=== PATIENT | male | born 1965 | race Caucasian/White ===

== ENCOUNTER 2024-08-15 11:59 | Inpatient (IN) | payer OTHER, SELFPAY ==
[2024-08-15] VITALS (11 sets, daily range): BP systolic 113–137; BP diastolic 66–90; PULSE 56–76; RESP 14–20; TEMP 36.5–37.1; O2SAT 95–99; BMI 31.8; BMI 33.2
--- NOTE | 2024-08-15 12:05 | EKG12_ITS ---
Test Reason : Blood Pressure : */* mmHG Vent. Rate : 56 BPM Atrial Rate : 56 BPM P-R Int : 160 ms QRS Dur : 76 ms QT Int : 428 ms P-R-T Axes : 50 20 14 degrees QTcB Int : 413 ms Sinus bradycardia Otherwise normal ECG When compared with ECG of 15-Aug-2024 12:23, MANUAL COMPARISON REQUIRED DATA IS UNCONFIRMED Confirmed by Gopi Grayson ([id number]), commissioning editor POLLY RUBY ([id number]) on 08/16/2024 9:24:45 AM Referred By: CARMINE Confirmed By: Gopi Grayson
--- NOTE | 2024-08-15 12:05 | RAD_ITS ---
PROCEDURE: CHEST 1 VIEW REASON FOR EXAM: Left leg and arm numbness and tingling. Dizziness headache. TECHNIQUE: Frontal view of the chest. COMPARISON: None. FINDINGS: The cardiac and mediastinal contours are normal. No acute consolidation, pleural effusion or pneumothorax. The visualized osseous structures demonstrate no acute abnormality. RAD/Chest 1 View IMPRESSION: No acute consolidation, pleural effusion or pneumothorax. Reading Location: [id number]
--- NOTE | 2024-08-15 12:06 | CT_ITS ---
PROCEDURE: STROKE CTA HEAD AND NECK W/CON REASON FOR EXAM: Headache. Loss of balance and left-sided weakness. TECHNIQUE: CTA imaging of the head and neck from the aortic arch to the skull vertex with intravenous contrast. 3D reconstructions. CONTRAST: 100 cc of Isovue 370. COMPARISON: Comparison is made with prior CT unenhanced of the head done earlier in the day. FINDINGS: Aortic Arch: Normal size and branching pattern. No significant atherosclerotic plaque. Brachiocephalic and Subclavians: Unremarkable RIGHT Carotid: Right CCA: Unremarkable. Right ICA: Unremarkable. Right ECA: Unremarkable. LEFT Carotid: Left CCA: Unremarkable. Left ICA: Unremarkable. Left ECA: Unremarkable. Vertebrals: Codominant. Arise from the subclavians. Both vertebrals form the basilar. RIGHT Vertebral: Unremarkable. LEFT Vertebral: Small left vertebral artery. No intracranial aneurysms or large vascular malformations are identified. Anterior cerebral arteries: Unremarkable. Middle cerebral arteries: Unremarkable. Basilar artery: Unremarkable. Posterior cerebral arteries: Unremarkable. Other major branches of the posterior circulation: Unremarkable. Major venous structures: Unremarkable. Other findings: No lymphadenopathy. Lung apices are clear. Bones are unremarkable. CT/STROKE CTA Head AND Neck W/Con IMPRESSION: RIGHT CAROTID: Unremarkable. LEFT CAROTID: Unremarkable. VERTEBRALS: Unremarkable. INTRACRANIAL: Unremarkable. One or more dose reduction techniques were used (e.g., Automated exposure contr ol, adjustment of the mA and/or kV according to patient size, use of iterative reconstruction technique). Reading Location: [id number]
--- NOTE | 2024-08-15 12:07 | CT_ITS ---
EXAM: STROKE BRAIN/HEAD WITHOUT CONT CLINICAL HISTORY: Headaches. Weakness on the left side with loss of balance. COMPARISON: None. TECHNIQUE: Multiple axial tomographic images were obtained without intravenous contrast administration. Sagittal and coronal reconstruction was obtained as well. FINDINGS: No significant atrophy is seen. Normal castro-white matter differentiation. No focal abnormality is seen. Mild degree of ethmoid sinusitis. CT/STROKE Brain/Head without Cont IMPRESSION: No acute abnormality is seen. The results were communicated to Dr. Duran the referring physician. Reading Location: [id number]
--- NOTE | 2024-08-15 12:28 | ED.RN ---
pt. back to room. called [facility]. @[id number]
[2024-08-15 12:30] LABS: Absolute Lymphocyte Count 1.73 X10^3/uL (0.83-4.51); Absolute Neutrophil Count 4.8 X10^3/uL (2.0-7.7); Basophil# 0.02 X10^3/uL; Basophil% 0.3 % (0-1); Eosinophil# 0.07 X10^3/uL; Hematocrit 40.7 % (40-54); Hemoglobin 13.8 g/dL (13.0-16.5); Lymphocyte # 1.73 X10^3/ul (0.83-4.51); Lymphocyte % 24.3 % (19-41); Mean Corp Hgb Conc 33.9 g/dL (32-36); Mean Corpuscular Hgb 29.7 pg (27.0-32.0); Mean Corpuscular Volume 87.5 fL (80-94); Mean Platelet Vol. 8.6 fl (6.2-12.0); Monocyte# 0.51 X10^3/uL; Monocyte% 7.2 % (0-10); NRBC Flagged by Analyzer 0 % (0-5); Neutrophil # 4.76 X10^3/uL (2.7-7.7); Neutrophil % 66.9 % (47-70); Platelet Count 215 K/mm3 (150-450); RBC Distribution Width CV 12.2 % (11.6-14.6); RBC Distribution Width SD 39.3 fl (35.1-43.9); Red Blood Count 4.65 M/mm3 (4.6-6.2); White Blood Count 7.1 K/mm3 (4.4-11.0)
[2024-08-15 12:36] LABS: Partial Thromboplast Time 26.1 Seconds (24.1-36.2)
[2024-08-15 12:40] LABS: Prothrombin Time (Protime)PT. 13.4 SECONDS (11.7-14.9)
--- NOTE | 2024-08-15 12:54 | EX.ED.DYSGE1 ---
HPI History of Present Illness Chief Complaint: Stroke Alert Narrative Narrative: Patient is a 58-year-old male with a past medical history of migraines, asthma who presents to the emergency department chief complaint of left arm and leg weakness as well as dizziness and headache. According the patient his last known well was around 10 AM this morning. 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 He states that he has been under extreme amount of stress recently as his company is questionably going to go bankrupt. Patient states that when he woke up this morning he felt well overall patient denies any blood thinner medications. [facility] Medical History Migraine Asthma Allergy/AdvReac Type Severity Reaction Status Date / Time No Known Allergies Allergy Verified 08/15/24 12:05 Social History Smoking Status: Never smoker ROS ROS ED ROS Narrative Constitutional: Complains of headache, dizziness as noted above denies any fevers or chills Eyes: Denies change in vision double vision blurry vision Cardiovascular: Denies chest pain or palpitations Respiratory: Denies coughing wheezing shortness of breath Abdomen: Denies abdominal pain nausea vomit diarrhea : Denies any urinary symptoms Neurological: Denies numbness, weakness, tingling Musculoskeletal: Denies back pain Skin: Denies rashes or lesions EXAM Physical Exam Narrative Exam Narrative: General: Patient lying in bed resting comfortably did not appear to be in acute distress Head: Atraumatic, normocephalic Eyes: PERRL bilaterally, EOMI bilaterally, no conjunctival injection noted Neck: Soft, supple, trachea midline Cardiovascular: Regular in rhythm no murmurs gallops rubs noted Respiratory: Clear to auscultation bilaterally Abdomen: Soft, nondistended, nontender to palpation, bowel sounds present x 4 Extremities: Radial pulses +2/4 in the bilateral extremities, +4/5 strength noted in the left upper extremity and the left lower extremity when compared to the right side Neurological: Patient following commands that he was at [facility] year is 2024. GCS 15 NIH 0 Skin: Warm, dry, intact no rashes or lesions noted Const Vital Signs: 08/15/24 12:01 08/15/24 12:17 08/15/24 12:17 Temperature 98.1 F 98.7 F Temperature Source Temporal Oral Pulse Rate 76 67 Respiratory Rate 16 14 Blood Pressure 137/90 H 129/86 H Blood Pressure Mean 105 100 Pulse Ox 98 99 Oxygen Delivery Method Room Air Room Air Room Air 08/15/24 12:35 08/15/24 13:05 Temperature 98.7 F Temperature Source Oral Pulse Rate 64 65 Respiratory Rate 18 14 Blood Pressure 129/86 H 125/81 H Blood Pressure Mean 100 95 Pulse Ox 96 95 Oxygen Delivery Method Room Air Room Air MDM MDM MDM Narrative Medical decision making narrative: Patient is a 58-year-old male who presented to the emerged part with a chief complaint of acute left-sided arm weakness as well as leg weakness dizziness. On the differential diagnose includes but limited to intracranial hemorrhage, ischemic stroke, posterior circulation stroke, complex migraine, high stress. Once workup is obtained reviewed he will be reevaluated. Patient CBC reviewed showed no evidence leukocytosis white blood count normal at 7.1, he was 13.8, platelet count normal at 215. Patient INR normal at 1, PT of 13.4. Patient sodium normal 136, potassium normal 3.9, creatinine normal 1. Patient troponin was noted to be [address] brain did not show any acute intracranial hemorrhage. Patient CTA head and neck showed no acute findings. Patient's chest x-ray reviewed by myself with official read pending showed no acute cardiopulmonary processes. Patient was evaluated by brickmason apprentice neurologist Dr. Fraire who states that he is not a tenecteplase candidate is recommending admission to the hospital to rule out stroke and any other possibility causing his symptoms. Will discuss case with hospitalist for admission. Patient given 325 mg aspirin. Patient case discussed with hospitalist Dr. Quinn who accept patient for admission. Patient notified is agreeable to plan all course concerns answered. Lab Data Labs: Laboratory Results - last 24 hr 08/15/24 12:20 WBC 7.1 RBC 4.65 Hgb 13.8 Hct 40.7 MCV 87.5 MCH 29.7 MCHC 33.9 RDW Std Deviation 39.3 RDW Coeff of Katie 12.2 Plt Count 215 MPV 8.6 Immature Gran % (Auto) 0.300 Neut % (Auto) 66.9 Lymph % (Auto) 24.3 [place] % (Auto) 7.2 Eos % (Auto) 1.0 Baso % (Auto) 0.3 Absolute Neuts (auto) 4.8 Absolute Lymphs (auto) 1.73 Nucleated RBC % 0 PT 13.4 INR 1.0 APTT 26.1 Sodium 136 Potassium 3.9 Chloride Direct 104 Carbon Dioxide 22.8 Anion Gap 9 BUN 15 Creatinine 1.0 Estim Creat Clear Calc 90.02 Est GFR (MDRD) Non-Af 84 BUN/Creatinine Ratio 14.1 Glucose 100 H Calcium 8.4 Troponin T High Sens 7 Discharge Plan Triage Chief Complaint: Stroke Alert ED Provider: Josr Duran Dx/Rx/DC Orders Clinical Impression: Left arm weakness, Left leg weakness Primary Care Provider: Misty Harris Referrals: Misty Harris MD [Primary Care Provider] - Print Language: Turkmen Disposition Disposition: Acute Care Hospital [facility]
[2024-08-15 12:58] LABS: Anion Gap 9 (5-15); BUN 15 mg/dL (4-19); BUN/Creat Ratio 14.1 RATIO (10-20); Calcium 8.4 mg/dL (7.6-11.0); Carbon Dioxide 22.8 mmol/L (22.0-29.0); Chloride 104 mmol/L (96-108); EST Glomerular Filtration Rate 84 (>60); Estimated Creatinine Clearance 90.02 ml/min; Glucose 100 mg/dL (70-99); Potassium 3.9 mmol/L (3.3-5.1); Sodium Level 136 mmol/L (133-145); Troponin T High Sensitivity 7 ng/L (<=22)
[2024-08-15] MEDS: Aspirin 325 MG Tablet PO (13:14)
--- NOTE | 2024-08-15 14:16 | HP.PCM.HOS_ITS ---
[facility] - General General Date of Admission: 08/15/24 Date of Service: 08/15/24 Chief Complaint: Chest pain, left-sided weakness. HPI Narrative LY NG, is a 58 M who presents presents with midsternal chest pain as well as left-sided weakness and paresthesias. Symptoms began approximately 10 AM. 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 Patient started experiencing the symptoms simultaneously. Left-sided paresthesias involving his face arm and leg. Patient did have a left-sided and was also having midsternal chest pain that did not radiate. Patient has had chest pain before and had a stress test in 2009 that was negative. Never had any strokelike symptoms in the past. He states that he is been under tremendous amount of stress recently with his work and concern for his dizziness. But also his mother last week. He reached out to Dr. Harris's office but he apparently had not been seen there for a while and they directed him to the emergency room. Patient underwent head CT CTA of the head and neck patient was seen by neurology and feel that this is likely a stress related reaction but recommended additional cardiac and stroke workup. [facility] Medical History Migraine Asthma Home Medications ?Medication ?Instructions ?Recorded ?Last Taken ?Type NK 08/15/24 Unknown History Allergy/AdvReac Type Severity Reaction Status Date / Time No Known Allergies Allergy Verified 08/15/24 12:05 Family History (Updated 08/15/24 @ 14:[address] Stanley Quinn DO) Father CVA (cerebral vascular accident) Social History (Updated 08/15/24 @ 14:[address] Stanley Quinn DO) Smoking Status: Never smoker alcohol intake: current alcohol intake frequency: holidays/special occasions only ROS ROS Narrative All review of systems were negative except as mentioned above in the history of present illness and the other review of systems. Vital Signs Vital Signs Vital Signs: 08/15/24 12:01 08/15/24 12:17 08/15/24 12:17 Temperature 36.7 C 37.1 C Temperature Source Temporal Oral Pulse Rate 76 67 Respiratory Rate 16 14 Blood Pressure 137/90 H 129/86 H Blood Pressure Mean 105 100 Pulse Ox 98 99 Oxygen Delivery Method Room Air Room Air Room Air 08/15/24 12:35 08/15/24 13:05 08/15/24 13:30 Temperature 37.1 C Temperature Source Oral Pulse Rate 64 65 61 Respiratory Rate 18 14 18 Blood Pressure 129/86 H 125/81 H 130/66 H Blood Pressure Mean 100 95 87 Pulse Ox 96 95 96 Oxygen Delivery Method Room Air Room Air Room Air 08/15/24 14:00 08/15/24 14:08 Temperature 36.8 C Temperature Source Pulse Rate 59 L 59 L Respiratory Rate 20 H 20 H Blood Pressure 113/82 H 113/82 H Blood Pressure Mean 92 92 Pulse Ox 95 95 Oxygen Delivery Method Room Air Weight Weight: 95 kg Body Mass Index (BMI) 31.8 Physical Exam Narrative - Physical Exam General: Alert, Oriented x3, Cooperative HEENT: Atraumatic, PERRLA, EOMI, Normocephalic Oral: Moist Mucosa, No Gingival or Mucosal Lesions/ Ulcerations Neck: Supple, No JVD, Negative Carotid Bruits Lungs: Clear to auscultation, Normal air movement Cardiovascular: Regular rate, Normal S1, Normal S2, No murmurs Abdomen: Bowel Sounds Present, Soft, Non Tender, Non-Distended, No Hepato- splenomegaly Extremities: No clubbing, No cyanosis, No edema, Capillary Refill Less than 3 Seconds Skin: No rashes, No breakdown Musculoskeletal: No Tenderness to Palpation of Joints or Extremities Neurological: Diminished sensation on the left face arm and leg. Muscle strength 5-5 throughout except for 4 out of 5 in the left lower extremity. Psych/Mental Status: Normal Affect, Appropriate Results Lab / Micro Data Attestation: I reviewed the patient's lab results. 08/15/24 12:20 08/15/24 12:20 Labs: Laboratory Results - last 24 hr 08/15/24 12:20: WBC 7.1, RBC 4.65, Hgb 13.8, Hct 40.7, MCV 87.5, MCH 29.7, MCHC 33.9, RDW Std Deviation 39.3, RDW Coeff of Katie 12.2, Plt Count 215, MPV 8.6, Immature Gran % (Auto) 0.300, Neut % (Auto) 66.9, Lymph % (Auto) 24.3, [place] % (Auto) 7.2, Eos % (Auto) 1.0, Baso % (Auto) 0.3, Absolute Neuts (auto) 4.8, Absolute Lymphs (auto) 1.73, Nucleated RBC % 0, PT 13.4, INR 1.0, APTT 26.1, Sodium 136, Potassium 3.9, Chloride Direct 104, Carbon Dioxide 22.8, Anion Gap 9, BUN 15, Creatinine 1.0, Estim Creat Clear Calc 90.02, Est GFR (MDRD) Non-Af 84, BUN/Creatinine Ratio 14.1, Glucose 100 H, Calcium 8.4, Troponin T High Sens 7 EKG Initial EKG: Attestation: I personally reviewed and interpreted this EKG as follows: Prior EKG tracings: available for review EKG Rhythm Intrepretation: Sinus Rhythm Assessment & Plan Assessment/Plan (1) Left-sided weakness: PLAN: Patient certainly has objective findings. But certainly this could be stress related reaction as symptoms began after getting off a very stressful phone call. So possibilities could be a stroke/TIA versus psychosomatic reaction versus conversion disorder. Will need to rule out stroke and TIA first and foremost. Check an MRI of the brain, 2D echocardiogram. Continue with aspirin. Check a lipid panel. PT OT and speech therapy evaluate and treat. If this is determined to be negative for stroke then I recommend patient follow- up with his primary care doctor, he has not seen in for some time, about additional recommendations whether that would be medications or counseling or combination thereof. (2) Chest pain: PLAN: No evidence of any myocardial infarction at this time and this could also be related with structure reaction/panic attack. Will check a stress test with chemical stress test given his left-sided weakness. Continue with aspirin. PLAN: Plan VTE prophylaxis with enoxaparin CODE STATUS: Addressed with the patient. Patient wishes to be full code. Charges/Coding Visit Charges Inpatient E&M: 19499 Init Hosp L3
[2024-08-15 14:33] LABS: TROPONIN VARIANCE 2 HR 1; Troponin T High Sens 2 HR 8 ng/L (<=22)
--- NOTE | 2024-08-15 14:38 | ECHOD_ITS ---
Reason For Study Reason For Study: TIA/CVA Procedure This was a 2D Doppler, Color Flow transthoracic echocardiogram. Exam performed portable in patient room. Left Ventricle Normal LV size. The estimated ejection fraction is 65 %. No evidence for diastolic dysfunction. No regional wall motion abnormalities noted. Right Ventricle Normal RV size. Normal systolic function. Atria The left and right atria are normal. No doppler evidence for ASD. Bubble contrast study negative for right to left interatrial shunt. Mitral Valve There is no mitral valve stenosis. Trivial mitral valve insufficiency. Tricuspid Valve There is no tricuspid stenosis. Trivial tricuspid valve insufficiency. Pulmonary artery systolic pressure is 30 mmHg. Aortic Valve Trisinus/trileaflet aortic valve. There is no aortic stenosis. No aortic valve insufficiency. Pulmonic Valve There is no pulmonic valvular stenosis. No pulmonic valve insufficiency. Great Vessels Normal sized aortic root. Pericardium/Pleural No pericardial effusion. Medication Performed a rapid injection of agitated mix of 9 cc saline and 1cc air to assess for atrial septal defect. MMode/2D Measurements & Calculations LVIDd: 4.6 cm IVSd: 0.83 cm Ao root diam: 2.9 cm LVIDs: 3.2 cm LVPWd: 0.90 cm RVDd: 3.5 cm FS: 30.1 % LAV(MOD-bp): 31.2 ml LVAd ap4: 31.4 cm2 SV(MOD-sp4): 60.2 ml LAV(MOD-bp) Indexed: 15.0 ml/m2 LVLd ap4: 8.2 cm SI(MOD-sp4): 28.9 ml/m2 LAV(MOD-sp2): 29.0 ml EDV(MOD-sp4): 98.9 ml LAV(MOD-sp4): 28.7 ml EDV(sp4-el): 102.3 ml LVAs ap4: 17.9 cm2 LVLs ap4: 7.0 cm ESV(MOD-sp4): 38.7 ml ESV(sp4-el): 39.0 ml EF(MOD-sp4): 60.8 % EF(sp4-el): 61.9 % SV(sp4-el): 63.3 ml LA A4 area: 14.4 cm2 LA dimension(2D): 3.3 cm RA A4 area: 13.9 cm2 TAPSE: 2.3 cm Time Measurements MV dec time: 0.23 sec Doppler Measurements & Calculations MV E max vamshi: 68.1 cm/sec Lat Peak E' Vamshi: 16.9 cm/sec Med Peak E' Vamshi: 11.7 cm/sec MV A max vamshi: 82.8 cm/sec E/E' lat: 4.0 E/E' med: 5.8 MV E/A: 0.82 Ao V2 max: 122.2 cm/sec LV V1 max: 106.3 cm/sec PA V2 max: 83.0 cm/sec Ao max P.0 mmHg LV V1 max P.5 mmHg TR max vamshi: 246.1 cm/sec TR max P.2 mmHg ECHO/Echo Complete Interpretation Summary The estimated ejection fraction is 65 %. No evidence for diastolic dysfunction. Trivial mitral valve insufficiency. Ordering Physician: Stanley Quinn Referring Physician: JOEL COATES Performed By: Bertha Villalobos RDCS
--- NOTE | 2024-08-15 14:38 | MRI_ITS ---
EXAM: BRAIN WITHOUT CONTRAST CLINICAL HISTORY: Left-sided weakness COMPARISON: None. TECHNIQUE: PROCEDURE: Multiplanar sequences of the brain were obtained on a 1.5 Aura MRI system, including T1, T2, FLAIR, DWI, and ADC. No intravenous contrast was administered. FINDINGS: MRI BRAIN: No intraparenchymal hemorrhage is evident. No focus of restricted diffusion is identified to suggest acute or early subacute ischemia. There is no extra-axial fluid collection, mass effect, or shift of midline structures. The basal cisterns are visualized. The ventricles and cortical sulci are in proportion and consistent with the patient's age. There is no signal abnormality in the castro or white matter. The midline structures demonstrate normal contours. The craniocervical junction is unremarkable. The flow voids of the large intracranial vessels are normal. The calvarium is unremarkable. The paranasal sinuses and mastoid air cells are clear. MRI/Brain without Contrast IMPRESSION: No MR evidence of acute ischemia. Reading Location: [facility]
[2024-08-15] MEDS: Ibuprofen 600 MG Tablet PO (16:56)
[2024-08-15 17:01] LABS: TROPONIN VARIANCE 2 HR 1; Troponin T High Sens 2 HR 8 ng/L (<=22)
--- NOTE | 2024-08-15 17:12 | EKG12_ITS ---
Test Reason : AM Blood Pressure : */* mmHG Vent. Rate : 57 BPM Atrial Rate : 57 BPM P-R Int : 150 ms QRS Dur : 84 ms QT Int : 422 ms P-R-T Axes : 61 19 20 degrees QTcB Int : 410 ms Sinus bradycardia Otherwise normal ECG When compared with ECG of 15-Aug-2024 16:06, MANUAL COMPARISON REQUIRED DATA IS UNCONFIRMED Confirmed by Gopi Grayson ([id number]), online editor POLLY RUBY ([id number]) on 08/16/2024 9:23:45 AM Referred By: Confirmed By: Gopi Grayson
[2024-08-15 18:48] LABS: Bedside Glucose 96 mg/dL (74-106)
[2024-08-15 19:07] LABS: TROPONIN VARIANCE 4 HR 5; Troponin T High Sens 4 HR 12 ng/L (<=22)
[2024-08-16 02:45] VITALS: BP 112/70; PULSE 62; RESP 16; TEMP 36.5; O2SAT 95
[2024-08-16 04:52] VITALS: BMI 33.2
[2024-08-16] MEDS: Aspirin 81 MG TAB.CHEW PO (05:21)
--- NOTE | 2024-08-16 05:55 | EKG12_ITS ---
Test Reason : CP Blood Pressure : */* mmHG Vent. Rate : 66 BPM Atrial Rate : 66 BPM P-R Int : 146 ms QRS Dur : 76 ms QT Int : 396 ms P-R-T Axes : 48 12 21 degrees QTcB Int : 415 ms Normal sinus rhythm Normal ECG Confirmed by Gopi Grayson ([id number]), pictures editor OLIVIA OROZCO ([id number]) on 08/16/2024 9:35:29 AM Referred By: Confirmed By: Gopi Grayson
[2024-08-16 05:59] LABS: Cholesterol 123 mg/dL (<=200); High Density Lipoprotein 39 mg/dL; Low Density Lipoprotein Calc. 68 mg/dL; Triglycerides 78 mg/dL; Very Low Density Lipoprotein 16 mg/dL (5-40); cholesterol:hdl ratio screen 3.15
[2024-08-16 06:45] VITALS: BP 114/72; PULSE 60; RESP 16; TEMP 36.7; O2SAT 97
--- NOTE | 2024-08-16 10:30 | CASEMGMT ---
RN CM Face to Face with patient for initial transition planning/care coordination assessment. RN CM introduced self and role at [facility]. Patient lying in bed, alert and oriented. Patient willing to participate in assessment and is able to answer all questions appropriately. Care providers, pharmacy, and demographics verified. Strata: 1 PCP: Kimberly Specialists: none Preferred Pharmacy: [facility] Insurance: [employer] Prescription Benefit: yes Living Will/HPOA: none LNOK: Living Arrangements: Patient lives with in a 2 story home with bed and bath on first floor, 3 steps and railing to enter the home. Patient is independent at home. Transportation: self, DME/HHC: Patient denies DME int he home. No previous HHC or SNF Patient wishes to discharge home, denies need for home health at this time. Patient states he has no further needs or concerns at this time. CM to follow for discharge planning needs that may arise. Disposition Plan: Patient to discharge home with family support and follow-up plans in place. Vandana JACOBSON, RN, CM
[2024-08-16 10:45] VITALS: BP 91/69; PULSE 65; RESP 16; TEMP 36.8; O2SAT 98
[2024-08-16 11:14] VITALS: O2SAT 96
[2024-08-16 12:05] VITALS: BMI 33.2
--- NOTE | 2024-08-16 12:08 | STRESSREP ---
Stress Test Report Date: 08/16/2024 Procedure: Pharmacologic stress nuclear imaging study Indications: Chest pain Consent: Per the patient Procedure: The patient underwent pharmacologic (Regadenoson) evaluation with a peak heart rate of 87 beats per minute (53%predicted maximal heart rate) and a peak blood pressure of 122/74 mmHg. The baseline ECG demonstrated normal sinus rhythm. EKG during lexiscan infusion revealed no evidence of significant ischemia or infarction. EKG post infusion revealed no evidence of significant ischemia or infarction [There were no cardiac dysrhythmias pretest, during pharmacologic infusion, or recovery]. Patient had mild chest pressure at rest which did not change with Lexiscan infusion or in the recovery phase. The examination was discontinued secondary to completion of protocol. Impression: 1. Lexiscan stress test test is negative for Lexiscan infusion induced EKG changes of ischemia. 2. Patient had mild chest pressure at rest which did not change with Lexiscan infusion or in the recovery phase. 3. Results of the nuclear portion of the test is as below Myocardial perfusion imaging study: Technique: The patient was injected with 12 millicuries of technetium 99m Cardiolite and subsequently rest SPECT Cardiolite nuclear imaging was obtained in the horizontal long, vertical long, and short axis views. The patient underwent pharmacologic [Regadenoson 0.4mg] evaluation. Please see above for details. The patient was injected with 36 millicuries of technetium 99m Cardiolite and subsequently stress SPECT Cardiolite nuclear imaging was obtained in the horizontal long, vertical long, and short axis views. A gated Cardiolite study at peak stress was obtained. Interpretation: Rest and stress SPECT Cardiolite nuclear imaging status post realignment, normalization, and attenuation correction demonstrate no evidence of significant ischemia or infarction. Gated images reveal no significant regional wall motion abnormalities. The reported LVEF is 58%. Impression: 1. There is no evidence of significant ischemia or infarction. 2. Estimated ejection fraction is 58%. This note was generated with [employer] software. It may contain incorrect words, spelling, and punctuation that were not noted in checking the note before signing.
[2024-08-16 13:11] VITALS: BMI 33.2
--- NOTE | 2024-08-16 14:13 | PN.NEURO_ITS ---
Assessment and Plan: Neuro Assessment/Plan 58 y/o man p/w midsternal chest pain as well as left-sided weakness and paresthesias in the setting of extraordinary stress which he endorses. CT head- no acute intracranial process. CTA- no LVO. MRI brain - no acute stroke. Today, he reports feeling better but he still c/o mild numbness on left side. NIHSS-1. Diagnosis: TIA Plan: ASA and statin. Follow up TTE. Would defer cardiac workup to cardiology. OT/PT/COMPUTER FIELD TECHNICIAN. Control of vascular risk factors. I personally attended this patient and spent a total time of 30 minutes evaluating this patient including clinical assessment, review of chart, medical history imaging, and determining appropriate treatment and workup. Subject: Neurology Subjective 58 y/o man p/w midsternal chest pain as well as left-sided weakness and paresthesias in the setting of extraordinary stress which he endorses. CT head- no acute intracranial process. CTA- no LVO. MRI brain - no acute stroke. Today, he reports feeling better but he still c/o mild numbness on left side. NIHSS-1. NIHSS NIHSS Nursing Documentation NIHSS Nursing Documentation: NIHSS: Ischemic Stroke/TIA Start: 08/15/24 14:38 Text: For PCU Patients: NIH and Neuro Check every 4 Status: Active hours, PRN and with change in RN caregiver. Freq: [id number] Protocol: Activity Type Activity Date Activity User E-sign Co-sign Detail Recorded Client Recorded Date Recorded By Document 08/16/24 10:45 GITA [id number] 08/16/24 12:45 GITA 08/16/24 10:45 NIH Stroke Scale [NIHSS] A score of 0 is normal or asymptomatic . Total possible score is 42. Inpatient: RN or Physician to activate a stroke alert for onset of new stroke symptoms or with NIHSS increase >/= 3 points. Following change in neurological status, NIHSS will be performed per physician order or more frequently PRN. -1a. Level of Consciousness Alert; keenly responsive -1b. LOC Questions Answers BOTH questions correctly. -1c. LOC Commands Performs both tasks correctly . -2. Best Gaze Normal -3. Visual No visual loss -4. Facial Palsy Normal symmetrical movements -5a. Left Arm No drift; arm holds 90 (or 45 ) degrees for full 10 seconds -5b. Right Arm No drift; arm holds 90 (or 45 ) degrees for full 10 seconds -6a. Left Leg No drift; leg holds 30-degree position for full 5 seconds -6b. Right Leg Drift; leg falls by the end of 5- seconds, but does not hit bed -7. Limb Ataxia Absent -8. Sensory Mild-to- moderate sensory loss; -9. Best Language No aphasia; normal -10. Dysarthria Normal -11. Extinction and Inattention No abnormality -Total 2 Query Text:A score of 0 is normal or asymptomatic. Total possible score is 42 . ED: Notify Physician for NIHSS increase by > / = 3 points. Inpatient: RN or Physician to activate a stroke alert for NIHSS increase of > / = 3 points. Coma Scale [Assess] -Eye Opening Spontaneous -Motor Obeys Commands -Verbal Oriented [Total] -Coma Scale Total 15 NIHSS 1a. Level of Consciousness: Alert; keenly responsive 1b. LOC Questions: Answers BOTH questions correctly. 1c. LOC Commands: Performs both tasks correctly. 2. Best Gaze: Normal 3. Visual: No visual loss 4. Facial Palsy: Normal symmetrical movements 5a. Left Arm: No drift; arm holds 90 (or 45) degrees for full 10 seconds 5b. Right Arm: No drift; arm holds 90 (or 45) degrees for full 10 seconds 6a. Left Leg: No drift; leg holds 30-degree position for full 5 seconds 6b. Right Leg: No drift; leg holds 30-degree position for full 5 seconds 7. Limb Ataxia: Absent 8. Sensory: [id number] sensory loss; 9. Best Language: No aphasia; normal 10. Dysarthria: Normal 11. Extinction and Inattention: No abnormality Total: 1 EEG Results Procedure Details EEG Procedure Details: LY NG is a 58 year old M with a past medical history of , who presents for evaluation of Electroencephalogram on DATE at TIME Objective Data Objective Data Vital Signs: Vital Signs Temp Pulse Resp BP Pulse Ox O2 Del Method 98.2 F 65 16 91/69 96 Room Air 08/16/24 10:45 08/16/24 10:45 08/16/24 10:45 08/16/24 10:45 08/16/24 11:14 08/16/24 11:14 Oxygen Delivery Method Room Air Weight: 99.159 kg Body Mass Index (BMI) 33.2 Lab / Micro Data 08/15/24 12:20 08/15/24 12:20 Labs: Laboratory Results - last 24 hr 08/15/24 12:03: POC Glucose 96 08/15/24 14:05: Troponin T Hi Sens 2 Hr 8, Troponin T Hi Sens 2Hr Delta 1 08/15/24 16:14: Troponin T Hi Sens 2 Hr 8, Troponin T Hi Sens 2Hr Delta 1 08/15/24 18:30: Troponin T Hi Sens 4Hr 12, Troponin T Hi Sens 4Hr Delta 5 08/16/24 05:00: Triglycerides 78, Cholesterol 123, VLDL Cholesterol 16, HDL Cholesterol 39 L, Cholesterol/HDL Ratio 3.15, TSH 1.700 Radiography Diagnostic Testing: Radiology Impression Chest X-Ray 08/15/24 12:05 IMPRESSION: No acute consolidation, pleural effusion or pneumothorax. Reading Location: [id number] Head/Neck CTA 08/15/24 12:06 IMPRESSION: RIGHT CAROTID: Unremarkable. LEFT CAROTID: Unremarkable. VERTEBRALS: Unremarkable. INTRACRANIAL: Unremarkable. One or more dose reduction techniques were used (e.g., Automated exposure control, adjustment of the mA and/or kV according to patient size, use of iterative reconstruction technique). Reading Location: [id number] Brain CT 08/15/24 12:07 IMPRESSION: No acute abnormality is seen. The results were communicated to Dr. Duran the referring physician. Reading Location: [id number] Brain MRI 08/15/24 14:38 IMPRESSION: No MR evidence of acute ischemia. Reading [facility] Ex[facility] Narrative General: The patient appears nutritionally appropriate, well-groomed, and appears comfortable in no acute distress. Mental Status:? The patient?s mental status was normal including orientation.? Language was intact.? Cranial nerves:? Visual fischer full, and extra-ocular motion was intact. Symmetric face. Motor: Normal strength in all extremities. Sensation: Mild sensory loss in left UE and left LE? Coordination:? Bilateral finger to nose was normal.? There was no dysmetria. Gait:? deferred.
--- NOTE | 2024-08-16 14:48 | DS.PCM_ITS ---
Providers Date of Admission: 08/15/24 Date of Discharge: 08/16/24 Primary Care Physician: Dr. Misty Harris MD Consultations 08/15/24 14:38 Consult: Tele-Neurology Routine Consulting Provider: [facility] Reason for Consult: Acute Ischemic Stroke/TIA EMERGENT Consult: No MD Notified: Yes Date Notified: 08/15/24 Time Notified: 14:12 Method of Notification: ED Physician Initiated Nursing Unit Staff Notify [facility] of Tele-Neurology Consult: Yes Reason For Visit: LEFT SIDED WEAKNESS Diagnosis Discharge Diagnosis (1) Left-sided weakness: Status: Acute Code(s): R53.1 - Weakness (2) Chest pain: Status: Acute Code(s): R07.9 - Chest pain, unspecified Medications at Discharge Home Medications aspirin 81 mg chewable tablet 81 mg PO BREAKFAST #0 tabs 08/16/24 atorvastatin 80 mg tablet 80 mg PO DAILY #30 tabs 08/16/24 Hospital Course Operations None Procedures EKG, Stress test and - (Chest x-ray/CT brain/CTA head and neck/MRI brain) Summary of Care Provided Minutes Spent on Discharge: 37 Hospital Course: Mr. Dalton is a 58-year-old white male who presented to the emergency department at [facility] on 08/15/2024 with a chief complaint of chest pain and left-sided weakness. He reported midsternal chest pain as well as left-sided weakness with paresthesias began at approximately 10 AM. 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 Symptoms started simultaneously as he got off the phone. He had left-sided paresthesias involving his face arm and leg as well as some left- sided midsternal chest pain that did not radiate. He did not have any associated nausea, vomiting, shortness of breath or diaphoresis. He has never had strokelike symptoms previously but states he has been under extraordinarily amount of stress lately. His mother also about a week ago. He reached out to Dr. Harris's office but he had not been seen there for a while so they directed him to come to the emergency department. Vital signs on presentation showed temperature of 36.7, heart rate 76, respiratory 16, blood pressure is 137/90 and pulse ox was 98% on room air. His CBC was unremarkable. Coags were normal. Chemistry panel was unremarkable. Troponin was unremarkable. Lipid panel showed a total cholesterol 123 with an HDL of 39. For some reason his LDL was not estimated. EKG was sinus rhythm with no ST-T wave changes concerning for acute ischemia and normal intervals. Chest x-ray was unremarkable. CT of the brain was unremarkable for acute findings. CTA of the head and neck was unremarkable for LVO or stenosis. An MRI of the brain was performed and showed no evidence of acute ischemia. For his chest pain, stress test was performed and was negative for inducible ischemia and demonstrated EF of 50%. He was seen by neurology and they recommended continuing aspirin and statin for plaque stabilization and suggested that he probably had a TIA. Symptoms resolved and findings were discussed with the patient. We will continue him on a baby aspirin 81 mg daily and a high intensity dose statin for now with follow-up to his primary care physician within the next 2 weeks. We have also asked him to follow-up with neurology within the next month. Patient was able to be discharged home in stable condition on 08/16/2024. Discharge diagnoses: Transient ischemic attack Left paresthesias-resolved Chest pain-resolved History of migraines History of asthma Physical Exam Const alert, oriented x3, no apparent distress, no limitations, healthy appearing and well nourished Constitutional Narrative: Obese, middle-aged, white male, sitting up in bed watching television, appears comfortable, nontoxic General Appearance: cooperative, comfortable, well kempt and well developed Exam Limitations: no limitations Nutritional Appearance: obese HEENT normocephalic, head/scalp atraumatic, hearing grossly normal bilaterally and moist oral mucous membranes HEENT Narrative: Mallampati 3, no thrush Eyes Eyes Narrative: No scleral icterus Neck supple Neck Narrative: Trachea midline Resp normal respiratory effort, no retractions, no use of accessory muscles and clear to auscultation bilaterally Auscultation: Negative for rales, rhonchi or wheezes Cardio regular rate, regular rhythm, S1 normal heart sound, S2 normal heart sound, no murmurs, no rub, no gallops and no clicks GI normal to inspection, nondistended, normoactive bowel sounds, soft to palpation and non-tender Extremity no clubbing, cyanosis or edema Extremity Narrative: Pedal and radial pulses are 2+ Skin no jaundice, no petechiae and no mottling Neuro oriented x3, moves all extremities and no focal motor deficits Speech: speech normal Psych affect normal Psych Narrative: Very pleasant, interacts appropriately Weight / BMI Weight Weight: 99.159 kg Body Mass Index (BMI) 33.2 ABG / Lab / Microbiology Data 08/15/24 12:20 08/15/24 12:20 Laboratory: Laboratory Results - last 24 hr 08/15/24 12:03: POC Glucose 96 08/15/24 16:14: Troponin T Hi Sens 2 Hr 8, Troponin T Hi Sens 2Hr Delta 1 08/15/24 18:30: Troponin T Hi Sens 4Hr 12, Troponin T Hi Sens 4Hr Delta 5 08/16/24 05:00: Triglycerides 78, Cholesterol 123, VLDL Cholesterol 16, HDL Cholesterol 39 L, Cholesterol/HDL Ratio 3.15, TSH 1.700 Radiography Diagnostic Testing: Radiology Impression Brain MRI 08/15/24 14:38 IMPRESSION: No MR evidence of acute ischemia. Reading [facility] Instructions Discharge Diet: Low fat / Low cholesterol Discharge Activity: Return to Normal Activity Return to work on: 08/17/24 DC O2, CPAP, BIPAP Needs Home O2 Discharge instructions: No Meaningful Use Info Meaningful Use Meaningful Use Diagnoses (Choose all that apply): None applicable Ischemic Stroke Statin Dosing Therapy Reference: STATIN DOSE THERAPY REFERENCE: * Patients > 75 years receive moderate or high dose statin therapy. * Patients 75 years or YOUNGER should receive HIGH intensity statin dose unless contraindicated. You will be required to document reason for non-treatment if statin daily dose does not meet guidelines. HIGH DOSE STATIN THERAPY DAILY Atorvastatin > than or = to 40 mg Rosuvastatin > than or = to 20 mg Amlodipine + Atorvastatin > than or = to 2.5/40 mg Ezetimibe + Simvastatin 10/80 mg Simvastatin 80mg Discharge Plan Admission Admit Date/Time: 08/15/24 14:10 Primary Reason for Your Visit: Chest Pain/L sided Weakness Attending Provider: Marina Hernandez Primary Care Provider: Misty Harris Consulting Providers: Micheal Gramajo; Ling Lamas; Anna Busby; Brandy Saha; Teodora Beard; Richie Lund; Lisa Sehpard; Sukhjinder Trevino; Santosh Gonzalez; Cholo Fraire; Mindi Storm; Js Mclean; Bessie Villalobos; Sepideh Casey; Juliana Fox; Conrad Brown; Azam Odell; Gerard Gay; Jeannine Hernandez; Jerson Hall; Stanley Quinn Discharge Orders/Prescriptions Prescriptions: New aspirin 81 mg Tablet,Chewable 81 mg PO BREAKFAST Qty: 0 0RF atorvastatin 80 mg tablet 80 mg PO DAILY Qty: 30 1RF Referrals / Follow Up: Misty Harris MD [Primary Care Provider] - Within 2 Weeks Scooter Wheeler MD [Non-Staff -Ordering Privileges] - Within 1 Month Disposition Disposition (needs filled in before D/C Order can be placed): Home, Self Care Charges/Coding Visit Charges Inpatient E&M: 06840 Disch Hosp >30min
[2024-08-16 15:13] VITALS: BP 114/73; PULSE 76; RESP 16; TEMP 36.8; O2SAT 98
--- NOTE | 2024-08-16 16:35 | PHA.DC.MR.R ---
Pharmacy PR Med Reconciliation Pharmacy Service has performed discharge medication reconciliation for this patient. Medication education papers prepared, patient discharged when counseling was attempted. Medications reviewed. The patient's discharge medication list was reviewed for discrepancies and discrepancies were resolved. Medications at Discharge Home Medications aspirin 81 mg chewable tablet 81 mg PO BREAKFAST #0 tabs 08/16/24 atorvastatin 80 mg tablet 80 mg PO DAILY #30 tabs 08/16/24
== END 2024-08-16 16:13 | disposition home or self-care (01) | DRG 69 ==
LOC: ED 13:27 → PCU 13:55
PROVIDERS: Emergency Provider Emergency Medicine; PCP Internal Medicine; Visit Provider Internal Medicine
DX: G45.8 Other transient cerebral ischemic attacks and related syndromes (principal); E66.9 Obesity, unspecified; F43.9 Reaction to severe stress, unspecified; R07.9 Chest pain, unspecified; R29.898 Other symptoms and signs involving the musculoskeletal system; R53.1 Weakness; Z63.4 Disappearance and death of family member; Z82.3 Family history of stroke; Z68.31 Body mass index [BMI] 31.0-31.9, adult; Z87.09 Personal history of other diseases of the respiratory system; Z86.69 Personal history of other diseases of the nervous system and sense organs
CPT/HCPCS: 36415; 70450; 70496; 70498; 70551; 71045; 78452; 80048; 80061; 82962; 84443; 84484; 85025; 85610; 85730; 93005; 93017; 93306; 97161; 99285; A9500; Q9967; A4216; J2785

== ENCOUNTER → 2024-09-12 | Outpatient (CLI) | payer OTHER, SELFPAY ==
[2024-09-12 20:25] LABS: Vitamin B12 576 pg/mL (180-914); Vitamin D,25 Hydroxy 23.7 ng/mL (30-100)
[2024-09-12 20:39] LABS: CRP < 3.00 mg/L (0.0-3.0); Magnesium 2.2 mg/dL (1.5-2.2)
[2024-09-12 20:45] LABS: Hemoglobin A1c 5.6 % (<=5.6)
[2024-09-12 21:29] LABS: Erythrocyte Sedimentation Rate < 1 mm/hr (0-20)
[2024-09-14 11:08] LABS: ANTINUCLEAR ANTIBODIES DIRECT Negative (Negative)
== END | disposition home or self-care (01) ==
LOC: MTLAB 09:46
PROVIDERS: PCP Internal Medicine; Referring Provider Psychiatry & Neurology Neurology; Visit Provider Psychiatry & Neurology Neurology
DX: G45.9 Transient cerebral ischemic attack, unspecified (principal); R20.2 Paresthesia of skin
CPT/HCPCS: 36415; 81241; 82306; 82607; 82747; 82784; 83036; 83735; 83883; 84165; 84425; 85014; 85303; 85306; 85652; 86038; 86140; 86225; 86235; 86334